=== PATIENT | female | born 1990 | race Hispanic/Latino ===

== ENCOUNTER 2017-03-23 08:41 | Emergency (ER) | payer OTHER ==
[2017-03-23 09:09] VITALS: PULSE 90; RESP 20; TEMP 97.7; O2SAT 100
[2017-03-23] MEDS ORDERED: Sodium Chloride 0.9% 1,000 ML IV STA (09:31)
--- NOTE | 2017-03-23 09:40 | ED PDOC ---
HPI: Headache Time Seen by Provider: 03/23/17 09:13 Chief Complaint (Nursing): Headache Chief Complaint (Provider): Headache History Per: Patient History/Exam Limitations: no limitations Onset/Duration Of Symptoms: Days (1) Current Symptoms Are (Timing): Still Present Additional History Per: Patient Additional Complaint(s): 26yo female, with no past medical history, presents to the ED for evaluation of headache, present since earlier today. Patient states she woke up with a headache which she states started in the front of her head and radiated to the rest of her head. She reports the headache has been worsening but states this is not the worst headache of her lifetime. She states she took fioricet prior to arrival with no relief of her symptoms. She denies any fever, shortness of breath, sore throat. Of note, patient states she is currently on her menstrual period. She has no other medical complaints. Past Medical History Reviewed: Historical Data, Nursing Documentation, Vital Signs Vital Signs: Last Vital Signs Temp 97.7 F 03/23/17 08:58 Pulse 90 03/23/17 08:58 Resp 20 03/23/17 08:58 BP 136/102 H 03/23/17 08:58 Pulse Ox 100 03/23/17 08:58 - Medical History PMH: Migraine - Surgical History Surgical History: Tonsillectomy - Family History Family History: States: Unknown Family Hx - Living Arrangements Living Arrangements: With Family - Social History Current smoker - smoking cessation education provided: No Ex-Smoker (has not smoked in the last 12 months): No Alcohol: None Drugs: Denies - Home Medications Home Medications: Ambulatory Orders Medication Instructions Recorded DiphenhydrAMINE [Benadryl] 1 tab PO Q8 PRN #21 cap 09/27/14 Prednisone 3 tab PO DAILY #15 tab 09/27/14 Acyclovir 5% [Zovirax 5% Ointment] 1 appl TOP 5XD #1 tube 03/14/16 - Allergies Allergies/Adverse Reactions: Allergies Allergy/AdvReac Type Severity Reaction Status Date / Time Sulfa (Sulfonamide Allergy RASH Verified 03/23/17 09:09 Antibiotics) Review of Systems ROS Statement: Except As Marked, All Systems Reviewed And Found Negative Constitutional: Negative for: Fever ENT: Negative for: Throat Pain Respiratory: Negative for: Shortness of Breath Neurological: Positive for: Headache Physical Exam - Reviewed Nursing Documentation Reviewed: Yes Vital Signs Reviewed: Yes - Physical Exam Appears: Positive for: Non-toxic, No Acute Distress Head Exam: Positive for: ATRAUMATIC, NORMAL INSPECTION, NORMOCEPHALIC Skin: Positive for: Normal Color Eye Exam: Positive for: EOMI, PERRL ENT: Positive for: Normal ENT Inspection Neck: Positive for: Supple Cardiovascular/Chest: Positive for: Regular Rate, Rhythm Respiratory: Positive for: Normal Breath Sounds. Negative for: Respiratory Distress Neurologic/Psych: Positive for: Alert, Oriented. Negative for: Motor/Sensory Deficits - ECG O2 Sat by Pulse Oximetry: 100 (RA) Pulse Ox Interpretation: Normal - Progress Re-evaluation Time: 12:10 Condition: Re-examined, Improved Medical Decision Making Medical Decision Making: Time: 929 Impression: Recurrent headache Differential: Migraines Plan: -- IV Fluids -- Reglan 10 mg IVP -- Toradol 30 mg IVP -- UDip Reassess Scribe Attestation: Documented by Shadia Davenport acting as a scribe for Giancarlo Sanders MD. Provider Attestation: All medical record entries made by the Scribe were at my direction and personally dictated by me. I have reviewed the chart and agree that the record accurately reflects my personal performance of the history, physical exam, medical decision making, and the department course for this patient. I have also personally directed, reviewed, and agree with the discharge instructions and disposition. Disposition - Clinical Impression Clinical Impression: Migraine - Patient ED Disposition Is Patient to be Admitted: No Doctor Will See Patient In The: Office Counseled Patient/Family Regarding: Studies Performed, Diagnosis, Need For Followup - Disposition Referrals: [facility] [Outside] Sha Bhakta MD [Staff Provider] - Disposition Time: 12:20 Condition: GOOD Additional Instructions: Follow up with your PCP in 2-3 days. Instructions: Migraine Headache (ED)
[2017-03-23 12:24] VITALS: BP 134/88
== END 2017-03-23 12:24 | disposition home or self-care (01) ==
LOC: H.ER 08:41
DX: R51 Headache (principal); G43.909 Migraine, unspecified, not intractable, without status migrainosus
CPT/HCPCS: 81025; 96361; 96374; 96375; 99283; J1885; J2765; J7040

== ENCOUNTER 2017-11-25 12:44 | Emergency (ER) | payer BC ==
[2017-11-25 13:11] VITALS: RESP 18
--- NOTE | 2017-11-25 13:28 | ED PDOC ---
HPI: Allergic Reaction Time Seen by Provider: 11/25/17 13:00 Chief Complaint (Nursing): Allergic Reaction Chief Complaint (Provider): Allergic Reaction History Per: Patient History/Exam Limitations: no limitations Onset/Duration Of Symptoms: Days (x1 week) Current Symptoms Are (Timing): Still Present Additional Complaint(s): 27 year old female with a hx of allergic reaction presents to the ED for evaluation of a pruritic rash to her entire face for the past week. Patient reports using Benadryl cream without any relief. Otherwise, she denies fever, shortness of breath, throat swelling, and new detergent / lotion use. PMD: [place] Past Medical History Reviewed: Historical Data, Nursing Documentation, Vital Signs Vital Signs: Last Vital Signs Temp 97.6 F 11/25/17 13:05 Pulse 78 11/25/17 13:05 Resp 18 11/25/17 13:05 BP 126/83 11/25/17 13:05 Pulse Ox 99 11/25/17 13:05 - Medical History PMH: Migraine - Surgical History Surgical History: Tonsillectomy - Family History Family History: States: Unknown Family Hx - Social History Current smoker - smoking cessation education provided: No Alcohol: None Drugs: Denies - Home Medications Home Medications: Ambulatory Orders Medication Instructions Recorded DiphenhydrAMINE [Benadryl] 1 tab PO Q8 PRN #21 cap 09/27/14 Prednisone 3 tab PO DAILY #15 tab 09/27/14 Acyclovir 5% [Zovirax 5% Ointment] 1 appl TOP 5XD #1 tube 03/14/16 predniSONE [Prednisone] 40 mg PO DAILY #10 tab 11/25/17 - Allergies Allergies/Adverse Reactions: Allergies Allergy/AdvReac Type Severity Reaction Status Date / Time Sulfa (Sulfonamide Allergy RASH Verified 03/23/17 09:09 Antibiotics) Review of Systems ROS Statement: Except As Marked, All Systems Reviewed And Found Negative Constitutional: Negative for: Fever ENT: Negative for: Throat Swelling Respiratory: Negative for: Shortness of Breath Skin: Positive for: Rash (pruritic rash on entire face) Physical Exam - Reviewed Nursing Documentation Reviewed: Yes Vital Signs Reviewed: Yes - Physical Exam Appears: Positive for: No Acute Distress Skin: Positive for: Rash (scattered erythematous papules on entire face with some noted on anterior neck and bilateral ears) Eye Exam: Positive for: Normal appearance, EOMI, PERRL ENT: Positive for: Normal ENT Inspection. Negative for: Pharyngeal Erythema, Tonsillar Swelling Neurologic/Psych: Positive for: Alert, Oriented (x3) - ECG O2 Sat by Pulse Oximetry: 99 (RA) Pulse Ox Interpretation: Normal Disposition - Clinical Impression Clinical Impression: Contact dermatitis - Patient ED Disposition Is Patient to be Admitted: No - Disposition Referrals: [facility] [Outside] [facility] [Outside] Disposition: Routine/Home Disposition Time: 13:27 Condition: STABLE Additional Instructions: MIO MORTENSEN, thank you for letting us take care of you today. Your provider was Laura Moe MD and you were treated for RASH. The emergency medical care you received today was directed at your acute symptoms. If you were prescribed any medication, please fill it and take as directed. It may take several days for your symptoms to resolve. Return to the Emergency Department if your symptoms worsen, do not improve, or if you have any other problems. Please contact your doctor or call one of the physicians/clinics you have been referred to that are listed on the Patient Visit Information form that is included in your discharge packet. Bring any paperwork you were given at discharge with you along with any medications you are taking to your follow up visit. Our treatment cannot replace ongoing medical care by a primary care provider outside of the emergency department. Thank you for allowing the [facility] team to be part of your care today. If you had an X-Ray or CT scan: A Radiologist will review the ED reading if any change in treatment is needed we will contact you. If you had a blood, urine, or wound culture: It will take several days for the results, if any change in treatment is needed we will contact you. If you had an STI test: It will take 48 hours for the results. Please call after 1 week if you have not heard back. Prescriptions: predniSONE [Prednisone] 40 mg PO DAILY #10 tab Instructions: Contact Dermatitis (DC) Forms: [facility] (Cameroonian) Print Language: OCCITAN Medical Decision Making Medical Decision Making: Time: 1325 Initial Impression: contact dermatitis Initial Plan: -- Pt was given option to use topical or oral steroid, and given the risks and benefits of both. Pt prefers oral option. Scribe Attestation: Documented by Ivonne Dozier acting as a scribe for Marquise Estrada PA-C. Provider Scribe Attestation: All medical record entries made by the Scribe were at my direction and personally dictated by me. I have reviewed the chart and agree that the record accurately reflects my personal performance of the history, physical exam, medical decision making, and the department course for this patient. I have also personally directed, reviewed, and agree with the discharge instructions and disposition.
[2017-11-25 14:11] VITALS: BP 118/70; PULSE 72; TEMP 98
[2017-11-25 14:21] VITALS: O2SAT 99
== END 2017-11-25 14:11 | disposition home or self-care (01) ==
LOC: H.ER 12:44
DX: L25.9 Unspecified contact dermatitis, unspecified cause (principal)

== ENCOUNTER 2018-07-31 14:35 | Emergency (ER) | payer OTHER, BC ==
[2018-07-31 14:45] VITALS: BP 135/77; PULSE 85; RESP 16; TEMP 98.5; O2SAT 98
[2018-07-31] MEDS ORDERED: Lidocaine 5% Patch TD STA (15:11)
[2018-07-31] MEDS ORDERED: Lidocaine 5% Patch TD ONE (15:31)
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
== END 2018-07-31 16:31 | disposition home or self-care (01) ==
LOC: SUPCPDRO 14:35 → H.ER 14:35
DX: M54.5 Low back pain (principal); V43.62XA Car passenger injured in collision with other type car in traffic accident, initial encounter; Y92.410 Unspecified street and highway as the place of occurrence of the external cause